=== PATIENT | male | born 1980 | race Caucasian/White ===

== ENCOUNTER 2018-11-10 11:37 | Emergency (ER) | payer BC, SELFPAY ==
[2018-11-10 11:51] VITALS: BP 140/87; PULSE 66; RESP 12; TEMP 36.7; O2SAT 98
--- NOTE | 2018-11-10 13:03 | W.ED.GENAD ---
Discharge Plan Disposition Patient Disposition: HOME Condition: Improving Discharge Details Chief Complaint: Abd Prob Clinical Impression: Gastritis Primary Care Provider: Tung Rivas ED Provider: Jordy Begum Home Meds and New Rx's Prescriptions: New ranitidine HCl 150 mg capsule 150 mg PO BID Qty: 60 RF: 0 Discharge Instructions Instructions: Gastritis (ED) Additional Instructions: Home to rest today. Avoid eating 2-3 hours prior to bedtime. May elevate the head of the bed 2-3 pillows as we discussed. Avoid fatty, spicy, fried food. Avoid aspirin and NSAIDs such as ibuprofen or Advil. Take ranitidine as prescribed twice daily for 30 days. Return for increasing pain, development of fever, or any other acute concern. Medical Decision Making 38-year-old male states that he had a flulike illness 3 weeks ago for which he took 3 times daily ibuprofen and following that he is now has had 2 weeks of near constant left upper quadrant burning sensation associated with heartburn that improves with Tums. No fever, chest pain, vomiting. He arrives to the emergency department afebrile with normal vital signs. On exam he is tender in the left upper quadrant. Most consistent with gastritis but must exclude cardiac etiology and patient referred for screening laboratories, EKG, urinalysis. Labs are reassuring. Patient somewhat improved with GI cocktail. We will place him on twice daily Zantac for 30 days and discussed lifestyle modifications with him. Lab Data Lab results reviewed: Yes I reviewed the patient's lab results. Laboratory Results - last 24 hr 11/10/18 11/10/18 11/10/18 12:53 13:24 13:24 WBC 7.32 RBC 4.72 Hgb 15.5 Hct 43.9 MCV 93.0 MCH 32.8 MCHC 35.3 RDW 12.7 Plt Count 216 MPV 9.1 Immature Gran % 0.5 Neutrophils % 58.6 Lymphocytes % 27.2 Monocytes % 10.5 Eosinophils % 2.9 Basophils % 0.3 Absolute Neutrophils 4.29 Absolute Lymphocytes 1.99 Absolute Monocytes 0.77 H Absolute Eosinophils 0.21 Absolute Basophils 0.02 Sodium 142 Potassium 4.0 Chloride 107 Carbon Dioxide 29.2 Anion Gap 5.8 BUN 13 Creatinine 0.93 Estimated GFR/1.73 m2 >= 60.00 Glucose 101 H Calcium 9.2 Total Bilirubin 0.5 AST 30 ALT 52 Alkaline Phosphatase 55 Troponin I < 0.02 Total Protein 7.3 Albumin 4.0 Urine Color Yellow Urine Clarity Clear Urine pH 7.0 Ur Specific [place] 1.025 Urine Protein Negative Urine Ketones Trace H Urine Blood Negative Urine Nitrite Negative Urine Bilirubin Negative Urine Urobilinogen 0.2 Ur Leukocyte Esterase Negative Urine Glucose Negative ECG Data Attestation: I personally reviewed and interpreted this ECG (s) as follows: Interpretation: Normal sinus rhythm with a rate of 55, the QRS is narrow, there is no ST segment elevation, intervals are within normal HPI General Mode of arrival: ambulatory. Date/Time Provider Initiated Documentation: 11/10/18 12:17. Limitations to Documentation: no limitations. Information obtained by: patient. History of Present Illness 38 year old M presents to the emergency department with the chief complaint of Left upper quadrant burning pain, described as moderate, Quality is described as burning and dull, and is localized to the abdomen. Patient reports no radiation. Patient started experiencing this week(s) and it has been intermittent. No relieving factors improve symptom(s), Eating worsens symptoms . Patient notes no other symptoms.. Patient did receive the following treatments prior to arrival, none Related Data Home Medications Medication Instructions Recorded Confirmed ranitidine HCl 150 mg PO BID #60 cap 11/10/18 Previous Rx's Medication Instructions Recorded ranitidine HCl 150 mg PO BID #60 cap 11/10/18 Allergies Allergy/AdvReac Type Severity Reaction Status Date / Time No Known Allergies Allergy Unverified 11/10/18 11:54 General Stated Complaint: Abd Prob TYLER: 3 Review of Systems Review of Systems 8 systems reviewed and otherwise negative [facility] Social History Smoking/Tobacco Use Status: Never Exam Narrative Exam Narrative: GEN: awake, alert, oriented 3. Pleasant, well groomed, interactive. HEAD: Normocephalic, atraumatic ENT: Mucous membranes moist, oropharynx unremarkable, External ear exam unremarkable EYES: PERRL, EOMI NECK: Full ROM, no OREN, no menigismus CHEST/RESP: Nontender, clear to auscultation bilateral, no wheeze/rhonchi/rales CARDIOVASCULAR: RRR, no murmur, rub stew. 2+ Rad pulse bilateral ABDOMEN: Soft, tender in the left upper quad, no mass. +Bowel sounds EXT: Full ROM, no edema, no rash Neuro: Grossly normal neurologic exam, conversant, interactive. Psych: Speech fluent, thoughts congruent, affect normal Course Vital Signs Temperature 36.7 C 11/10/18 11:51 Pulse 66 11/10/18 11:51 Respiratory Rate 12 11/10/18 11:51 Blood Pressure 140/87 11/10/18 11:51 Pulse Oximetry 98 11/10/18 11:51 Temperature 36.7 C 11/10/18 11:51 Temperature Source Temporal Artery Scan 11/10/18 11:51 Pulse 66 11/10/18 11:51 Respiratory Rate 12 11/10/18 11:51 Respiratory Effort Non-Labored 11/10/18 11:53 Blood Pressure 140/87 11/10/18 11:51 Blood Pressure Position Sitting 11/10/18 11:51 Pulse Oximetry 98 11/10/18 11:51 Oxygen Delivery Method Room Air 11/10/18 11:51 Oxygen Flow Rate 0 11/10/18 11:51 Pain Level 6 11/10/18 11:51
[2018-11-10 13:14] LABS: Bilirubin Negative (Negative); Blood Negative (Negative); Clarity Clear; Glucose Negative (Negative); Ketones Trace mg/dL (Negative); Leukocyte Esterase Negative (Negative); Nitrite Negative (Negative); Specific Gravity 1.025 (1.005-1.025); Urobilinogen 0.2 EU/dL (Up TO 0.2)
[2018-11-10 13:29] LABS: Abs Immature Grans 0.04 k/cumm (0.0-0.09); Absolute Basophil Count 0.02 k/cumm (0.0-0.2); Absolute Eosinophil Count 0.21 k/cumm (0.0-0.7); Absolute Lymphocyte Count 1.99 k/cumm (1.2-3.4); Absolute Monocyte Count 0.77 k/cumm (0.11-0.7); Absolute Neutrophil Count 4.29 k/cumm (1.2-6.7); Basophils % 0.3; Eosinophils % 2.9; HCT 43.9 % (40.0-50.0); HGB 15.5 g/dL (13.5-17.5); Immature Grans % 0.5; Lymphocytes % 27.2; Mean Corp. HGB Concentration 35.3 g/dL (32.0-36.0); Mean Corpuscular Hemoglobin 32.8 pg (27.0-33.0); Mean Platelet Volume 9.1 fL (8.0-11.0); Monocytes % 10.5; Neutrophils % 58.6; Platelet Count 216 x1000/uL (130-400); RBC 4.72 m/cumm (4.50-6.00); RBC Distribution Width 12.7 % (11.8-14.1); White Blood Cell Count 7.32 k/cumm (4.4-10.8)
[2018-11-10 13:58] LABS: ALT 52 U/L (12-78); AST 30 U/L (15-37); Alkaline Phosphatase 55 U/L (46-116); Anion Gap 5.8 mmol/L (3-11); BUN 13 mg/dL (7-18); Bilirubin, Total 0.5 mg/dL (0.2-1.0); CO2 29.2 mmol/L (21.0-32.0); CREATININE 0.93 mg/dL (0.70-1.30); Calcium 9.2 mg/dL (8.5-10.1); Chloride 107 mmol/L (98-107); Glucose 101 mg/dL (70-100); Sodium 142 mmol/L (136-145); Total Protein 7.3 g/dL (6.4-8.2)
[2018-11-10 14:13] LABS: Troponin I < 0.02 ng/mL (0.00-0.06)
== END 2018-11-10 14:48 | disposition home or self-care (01) ==
PROVIDERS: Emergency Provider Emergency Medicine; PCP Emergency Medicine
DX: R10.12 Left upper quadrant pain (principal); K29.00 Acute gastritis without bleeding
CPT/HCPCS: 36415; 80053; 93005; 99283; 81003; 84484; 85025; 93010

== ENCOUNTER 2019-06-28 09:22 | Emergency (ER) | payer BC, SELFPAY ==
[2019-06-28 09:26] VITALS: BP 124/76; PULSE 66; RESP 15; TEMP 36.7; O2SAT 99
--- NOTE | 2019-06-28 09:42 | ED.GENADUL_ITS ---
Discharge Plan Disposition Patient Disposition: HOME Condition: Stable Discharge Details Chief Complaint: Cellulitis Clinical Impression: Paronychia Primary Care Provider: Tung Rivas ED Provider: Melissa Ortega Home Meds and New Rx's Prescriptions: New doxycycline hyclate 100 mg tablet 100 mg PO BID 7 Days Qty: 14 RF: 0 Discharge Instructions Instructions: Paronychia (ED) Additional Instructions: Take the antibiotics until finished. Alternate Tylenol and Motrin as needed and directed for pain. Be sure to elevate your right foot as much as possible. Soak your toe in water mixed with antiseptic 2 times daily for the next few days. Follow-up with your primary care doctor this week for reevaluation. Return immediately to the emergency department if you develop any worsening or new concerning symptoms such as fever, increased pain, redness or swelling. Discharge Data Discharge Date/Time-TO BE ENTERED AT DEPARTURE: 06/28/19 10:05 Discharge Physician: Melissa Ortega Medical Decision Making 38yo M presents with right great toenail pain, redness and swelling for the past 10 days, getting progressively worse. Do not see any evidence of injury to nail or bony deformity. Appears to be a paronychia on the medial aspect. There are no signs of spreading lymphangitis. Patient offered local anesthesia but declines. An 11 blade scalpel was used to incise directly under the skin at the area of pus. There was approximately 0.5 cc yellow pus drainage and patient admitted to some improvement. His toe was soaked in saline mixed with Betadine and toe was covered with topical antibiotic ointment and dressing. Will treat with doxycycline. He was advised to follow-up with his primary care doctor for reevaluation and to return here at any time if worse. Medical Records Medical records reviewed: Yes I reviewed the patient's medical records. HPI General Mode of arrival: ambulatory . Date/Time Provider Initiated Documentation: 06/28/19 09:32 . Limitations to Documentation: no limitations . Information obtained by: patient . HPI Narrative: Patient is a 38-year-old male who presents with right great toenail pain for the past 10 days, now getting progressively worse with increased pain and redness. He denies any known fever, injury, bony pain or tenderness. He has soaked his toe and apply topical antibiotic ointment. He denies any known recent bite. Related Data Home Medications Medication Instructions Recorded Confirmed doxycycline hyclate 100 mg PO BID 7 Days #14 tab 06/28/19 Previous Rx's Medication Instructions Recorded doxycycline hyclate 100 mg PO BID 7 Days #14 tab 06/28/19 Allergies Allergy/AdvReac Type Severity Reaction Status Date / Time No Known Allergies Allergy Unverified 06/28/19 09:29 General Stated Complaint: Cellulitis TYLER: 4 Review of Systems Review of Systems ROS Unobtainable: All systems reviewed & are unremarkable except as noted in HPI and below PFSH Medical History No significant past medical history (Acute) Surgical History No significant past surgical history (Acute) Social History Smoking/Tobacco Use Status: Never Drug use: Never Do you feel safe at home: Yes Do you feel safe in your relationship?: Yes Exam Const General: cooperative, healthy appearing and no acute distress HENMT Head: normal to inspection Mouth: oral mucosae normal Eyes General: appearance normal, both eyes and all related structures Neck Neck: normal visual inspection Resp Effort & Inspection: normal respiratory effort and able to speak in complete sentences Cardio Rate: regular rate Skin General skin exam: no rashes or lesions noted Neuro General: alert, awake and oriented x3 Motor: muscle tone normal throughout Extrem Ankle/foot/toe images: 1. Erythema and edema of skin at base of R 1st toenail with collection of pus/fluctuance noted on medial aspect c/w paronychia. There is no bony tenderness, active bleeding, signs of lymphangitis. Psych Appearance: grossly normal Affect: normal affect Course Vital Signs Vital signs: Vital Signs Temperature 98.1 F 06/28/19 09:26 Pulse 66 06/28/19 09:26 Respiratory Rate 15 06/28/19 09:26 Blood Pressure 124/76 06/28/19 09:26 Pulse Oximetry 99 06/28/19 09:26 Temperature 98.1 F 06/28/19 09:26 Temperature Source Temporal Artery Scan 06/28/19 09:26 Pulse 66 06/28/19 09:26 Respiratory Rate 15 06/28/19 09:26 Respiratory Effort Non-Labored 06/28/19 09:28 Blood Pressure 124/76 06/28/19 09:26 Blood Pressure Position Sitting 06/28/19 09:26 Pulse Oximetry 99 06/28/19 09:26 Oxygen Delivery Method Room Air 06/28/19 09:26 Oxygen Flow Rate 0 06/28/19 09:26 Pain Level 9 06/28/19 09:26 Procedures Abscess I/D Site: Foot (Right great toe) Side (if applicable): Right Technique: Incised with #11 Blade Amount of fluid expressed (mL): 0.5 Irrigation: Yes Packing used?: None
[2019-06-28] MEDS: Ibuprofen 600 MG TAB PO (10:02)
[2019-06-28] MEDS: Doxycycline Hyclate 100 MG CAP PO (10:02)
[2019-06-28 10:03] VITALS: BP 124/76; PULSE 66; RESP 15; TEMP 36.7; O2SAT 99
== END 2019-06-28 10:05 | disposition home or self-care (01) ==
LOC: ER 10:05
PROVIDERS: Emergency Provider Physician Assistant; PCP Emergency Medicine
DX: L03.031 Cellulitis of right toe (principal)
CPT/HCPCS: 99283

== ENCOUNTER 2023-09-12 12:25 | Emergency (ER) | payer BC, SELFPAY ==
[2023-09-12 12:42] VITALS: BP 158/83; PULSE 57; RESP 20; TEMP 36.9; O2SAT 99
--- NOTE | 2023-09-12 13:44 | ED.GENADUL_ITS ---
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, they are [id number] and use them in your left ear and let the warm water run in your ear while you are showering to help resolve the wax Recheck next week with persistent symptoms Continue on the Sudafed for symptom control Ibuprofen and Tylenol as needed for pain Referrals: Tung Rivas, [Primary Care Provider] - Discharge Data Discharge Date/Time-TO BE ENTERED AT DEPARTURE: 09/12/23 13:50 Medical Decision Making 42-year-old male presenting with predominantly right ear pain and upper re spiratory congestion, right tympanic membrane injected with purulent drainage posteriorly, no mastoid tenderness Drainage noted in external auditory canal Will place on amoxicillin, Cipro otic for suspected otitis media externa, will discharge home in stable condition , return precautions reviewed and patient expressed understanding Blood pressure mildly elevated, will need outpatient reassessment with primary care physician HPI General Date/Time Provider Initiated Documentation: 09/12/23 12:48 . HPI Narrative: This 42-year-old male. Presents with sinus pressure and bilateral ear pain, right worse than left for the past 4 days. Denies any fever or chills. Denies any chest pain or shortness of breath. States he has been taking Sudafed with minimal relief. Reports drainage from right ear. Denies any pain behind the ear. Denies any headache. Related Data Home Medications Medication Instructions Recorded Confirmed amoxicillin 500 mg capsule 1,000 mg (2 x 500 mg) PO TID #30 09/12/23 caps ofloxacin 0.3 % ear drops 10 drp otic (ear) DAILY 7 days #5 09/12/23 mL Previous Rx's Medication Instructions Recorded amoxicillin 500 mg capsule 1,000 mg (2 x 500 mg) PO TID #30 09/12/23 caps ofloxacin 0.3 % ear drops 10 drp otic (ear) DAILY 7 days #5 09/12/23 mL Allergies Allergy/AdvReac Type Severity Reaction Status Date / Time No Known Allergies Allergy Unverified 09/12/23 12:42 General Stated Complaint: RespSymp TYLER: 4 PFSH All Active Problems (Updated 09/12/23 @ 13:19 by ADELINA Marquez) Otitis media (Acute) Otitis externa (Acute) Medical History (Updated 09/12/23 @ 13:19 by ADELINA Marquez) No significant past medical history Surgical History No significant past surgical history Social History Smoking/Tobacco Use Status: Never Smoking risk assessment performed?: Yes Drug use: Never Do you feel safe at home: Yes Do you feel safe in your relationship?: Yes Course Vital Signs Vital signs: Vital Signs Temperature 36.9 C 09/12/23 12:42 Pulse 57 L 09/12/23 12:42 Respiratory Rate 20 09/12/23 12:42 Blood Pressure 158/83 H 09/12/23 12:42 Pulse Oximetry 99 09/12/23 12:42 Temperature 36.9 C 09/12/23 12:42 Temperature Source Oral 09/12/23 12:42 Pulse 57 L 09/12/23 12:42 Respiratory Rate 20 09/12/23 12:42 Respiratory Effort Normal 09/12/23 12:46 Respiratory Depth Normal 09/12/23 12:46 Blood Pressure 158/83 H 09/12/23 12:42 Blood Pressure Position Sitting 09/12/23 12:42 Pulse Oximetry 99 09/12/23 12:42 Oxygen Delivery Method Room Air 09/12/23 12:42 Oxygen Flow Rate 0 09/12/23 12:42
== END 2023-09-12 13:50 | disposition home or self-care (01) ==
LOC: ER 12:43
PROVIDERS: Emergency Provider Physician Assistant; PCP Emergency Medicine
DX: H66.91 Otitis media, unspecified, right ear (principal); H60.91 Unspecified otitis externa, right ear
CPT/HCPCS: 99283

== ENCOUNTER 2023-12-31 05:06 | Outpatient (CLI) | payer BC, SELFPAY ==
[2023-12-31 08:26] LABS: Calculated LDL 114 mg/dL (<100); Cholesterol 194 mg/dL (<200); HDL Cholesterol 60 mg/dL (40-60); Triglyceride 101 mg/dL (<150)
== END 2023-12-31 05:07 | disposition home or self-care (01) ==
LOC: LBO 05:06
PROVIDERS: PCP Nurse Practitioner Family; Visit Provider Nurse Practitioner Family
DX: Z13.220 Encounter for screening for lipoid disorders (principal); Z13.1 Encounter for screening for diabetes mellitus
CPT/HCPCS: 36415; 80061; 83036